=== PATIENT | female | born 1960 | race Caucasian/White ===

== ENCOUNTER → 2018-03-08 | Outpatient (CLI) | payer OTHER ==
--- NOTE | 2018-03-09 08:44 | KCIC ---
Bilateral digital screening mammograms: Reason for examination: Routine screening. Comparison is made to previous study dated 09/12/2014. Interpretation was made with the benefit of CAD. The skin and nipples show no abnormalities. No abnormal axillary lymph nodes are seen. The breast parenchyma is heterogeneously dense. (Breast density: Category C.) There is a new nodular density at the 3:00 B position of the left breast measuring approximately 4 mm in size. Recommend further evaluation with ultrasound. There are no other dominant masses, suspicious calcifications or architectural distortion. Impression: Small 4 mm nodule at the 3:00 B position of the left breast. Recommend further evaluation with ultrasound. Your patient's mammogram demonstrates that she has dense breast tissue (breast density category C or D), which could hide abnormalities, and if she has other risk factors for breast cancer that have been identified, she might benefit from supplemental screening tests that may be suggested by you as her ordering physician. Dense breast tissue, in and of itself, is a relatively common condition. Therefore, this information is not provided to cause undue concern, but rather to raise your awareness and to promote discussion with your patient regarding the presence of other risk factors, in addition to dense breast tissue. Your patient's mammography results will be sent to her. BI-RAD Category 0: Incomplete. Needs additional imaging evaluation. "Our facility is accredited by the [employer] Mammography [employer]." This patient's information has been entered into a reminder system for the patient to be notified with the results of her examination and a target date for the next mammogram. Electronically signed by: Yaquelin Rizo MD (03/09/2018 8:40 AM) [id number]
== END | disposition home or self-care (01) ==
LOC: KCIC MAMMO 17:43
PROVIDERS: ATTEND Family Medicine
DX: Z12.31 Encounter for screening mammogram for malignant neoplasm of breast (principal); N63.23 Unspecified lump in the left breast, lower outer quadrant
CPT/HCPCS: 77067

== ENCOUNTER → 2018-03-15 | Outpatient (CLI) | payer OTHER ==
--- NOTE | 2018-03-16 13:29 | KCIC ---
Exam performed: Ultrasound left breast HISTORY: Abnormal left mammogram. DATE OF SERVICE: 03/15/2018. Comparison made to a previous screening mammogram from 03/08/2018. Discussion: Sonographic evaluation of the left breast is performed and images are obtained. There is a tiny 0.4 x 0.32 x 0.4 centimeter hypoechoic wider than taller nodule with good through transmission at 3:00 position, 5 cm above the nipple. No internal vascularity is identified. IMPRESSION: Hypoechoic wider than taller 0.4 x 0.4 x 0.32 cm nodule seen at 3:00 position, 5 cm from nipple. This could represent a complex cyst or a fibroadenoma. A six-month follow-up left mammogram and ultrasound may be obtained to ensure stability. BI-RADS Category 3: Probably Benign. "Our facility is accredited by the [employer] Mammography [employer]." Electronically signed by: Mary Jo Inman MD (03/16/2018 1:25 PM) [id number]
== END | disposition home or self-care (01) ==
LOC: KCIC US 11:19
PROVIDERS: ATTEND Family Medicine
DX: N63.21 Unspecified lump in the left breast, upper outer quadrant (principal)
CPT/HCPCS: 76641

== ENCOUNTER → 2020-07-12 | Outpatient (CLI) | payer OTHER ==
--- NOTE | 2020-07-12 13:16 | KCIC ---
Bilateral diagnostic digital mammograms: Reason for examination: Follow-up nodule. Comparison is made to previous studies dated 03/08/2018 and 09/12/2014. Interpretation was made with the benefit of CAD. The skin and nipples show no abnormalities. No abnormal axillary lymph nodes are seen. The breast par enchyma is heterogeneously dense. (Breast density: Category C.) There appears to be a small nodular p arenchymal density in the 11:00 B position of the right breast. No new abnormalities are seen in the left breast. There are no other dominant masses, suspicious calcifications or architectural distortio n. Impression: Small nodular parenchymal density in the right breast. No change in the left breast. Ultrasound to shanique wallace. Your patient's mammogram demonstrates that she has dense breast tissue (breast density category C or D), which could hide abnormalities, and if she has other risk factors for breast cancer that have bee n identified, she might benefit from supplemental screening tests that may be suggested by you as her ordering physician. Dense breast tissue, in and of itself, is a relatively common condition. Therefo re, this information is not provided to cause undue concern, but rather to raise your awareness and t o promote discussion with your patient regarding the presence of other risk factors, in addition to d ense breast tissue. Your patient's mammography results will be sent to her. BI-RAD Category 0: Incomplete. Needs additional imaging evaluation. Bilateral breast ultrasound: Comparison is made to left breast ultrasound exam dated 03/15/2018 and right breast ultrasound examina tion dated 09/28/2014. Ultrasound examinations of the breasts and axilla were performed bilaterally. The right breast shows no discrete cystic or solid nodules or architectural distortions. No abnormal appearing lymph nodes are seen in the right axilla. The left breast continues to show a small 5 mm nodule at the 3:00 position 5 cm from the nipple which is unchanged. No new cystic or solid nodules are seen. No abnormal appearing lymph nodes are seen in the left axilla. IMPRESSION: Stable 5 mm nodule at the 3:00 position of the left breast which would be consistent with small fibro adenoma. No abnormality seen in the right breast. Recommend routine mammographic follow-up. BI-RADS Category 2: Benign. "Our facility is accredited by the [employer] Mammography Program." This patient's information has been entered into a reminder system for the patient to be notified wit h the results of her examination and a target date for the next mammogram. Electronically signed by: Yaquelin Rizo MD (07/12/2020 1:14 PM) [id number]
== END ==
LOC: KCIC MAMMO 08:08
PROVIDERS: ATTEND Family Medicine
DX: N63.10 Unspecified lump in the right breast, unspecified quadrant (principal)
CPT/HCPCS: 76641; 77066

== ENCOUNTER → 2021-06-04 | Outpatient (CLI) | payer OTHER ==
--- NOTE | 2021-06-04 10:49 | RAD ---
EXAM: ULTRASOUND PELVIS INDICATION: Reason: VAGINAL BLEEDING. Last menstrual period was patient is postmenopausal. COMPARISON: None available. TECHNIQUE: Transabdominal sonography was performed. FINDINGS: The uterus measures 10.1 x 5.6 x 4.7 cm and is notable for 2 subserosal uterine fibroids in the fundu s, the largest which is anterior and measures 3.5 cm. Posteriorly there is a 3.4 cm uterine fibroid. The endometrium is somewhat distorted by the aforementioned fibroids but visualized portions of the e ndometrium are normal. No fluid within the endometrium. The right ovary measures 2.1 x 1.1 x 1.3 cm a nd the left measures 2.2 x 1.8 x 1.2 cm in both ovaries demonstrate normal color flow with no suspici ous cysts or masses. No adnexal masses. No free fluid. Visualized portions the urinary bladder are no rmal. IMPRESSION: 1. 2 subserosal uterine fundal fibroids as described. Electronically signed by: Ernesto Pham MD (06/04/2021 10:46 AM) [id number]
== END ==
LOC: US 06:42
PROVIDERS: ATTEND Family Medicine
DX: D25.2 Subserosal leiomyoma of uterus (principal); N93.9 Abnormal uterine and vaginal bleeding, unspecified
CPT/HCPCS: 76856